=== PATIENT | male | born 1965 | race Caucasian/White ===

== ENCOUNTER 2017-02-01 12:32 | Emergency (ER) | payer BC, OTHER ==
[~2017-02-01] VITALS: Ht 170.2 cm; Wt 84.5 kg
[~2017-02-01 12:32] MED LIST: PRLSR20 PO
[2017-02-01 12:54] VITALS: TEMP 36.7; Ht 170.2 cm; Wt 84.5 kg
[2017-02-01] MEDS ORDERED: TRAM-10 PO (13:19)
[2017-02-01 13:50] VITALS: BP 135/93; PULSE 79; O2SAT 97
--- NOTE | 2017-02-01 21:22 | EMERGENCY ROOM VISIT NOTE ---
ED Visit Note First contact with patient: 13:00 CHIEF COMPLAINT: Bad toothache. HISTORY OF PRESENT ILLNESS: Mr. Oswald is a 51-year-old white male who ambulates into the complaining of right mandibular dental pain. He reports a progressive dental pain for 3 days over the right mandible involving teeth 26, 27 and 28. The pain is now steady and severe and radiates to the face. He has been using ibuprofen but has had mild relief of his discomfort but today the pain became severe. Currently he is complaining of a deep achy sensation over the involved teeth. He rates his discomfort 9/10. His is pain does radiate through right side of the mandible. His pain worsens with chewing, palpation and exposure hot and cold foods. Today he has not identified any alleviating factors related to the pain. He did take ibuprofen without relief of his discomfort. He denies any associated symptoms including fevers, chills, sweats, facial swelling, sore throat, difficulty swallowing, voice changes, drooling. REVIEW OF SYSTEMS: As noted above in History of Present Illness. 8 body systems were reviewed with this patient and found to be negative unless noted above otherwise. PMH: Patient denies.. CURRENT MEDICATION: Ultram. ALLERGIES TO MEDICATION: Patient denies. SOCIAL HISTORY: Patient is currently employed; he feels safe in his home environment; he denies tobacco and alcohol use. PHYSICAL EXAM: Vital Signs: Date Time Temp Pulse Resp B/P (MAP) Pulse Ox O2 Delivery O2 Flow Rate FiO2 02/01/17 13:50 79 20 135/93 97 02/01/17 12:54 36.7 85 18 139/100 96 Room Air General: 51 year-old white male in moderate distress due to pain, nontoxic appearing, afebrile and hemodynamically stable. Neurological: Awake, alert and oriented to person, place and time. Answering questions appropriately and following commands. Good hand eye coordination. No focal motor or sensory deficits. Skin: Warm, dry and pink. HEENT: Atraumatic and normocephalic. No facial swelling or erythema. No intraoral trauma. Airway patent. Speech normal. The involved teeth are obviously decaying with all 3 teeth black at the base and multiple caries of the teeth were noted. The local gingiva is not erythematous or edematous. I was not able to palpate any abscesses. No cervical or submandibular lymphadenopathy. ED COURSE: Patient is assessed as noted above. Patient is educated about his findings and instructed on her treatment plan; he verbalizes understanding and agreement with this plan. CLINIC IMPRESSION: Dental pain. DISPOSITION: Patient discharged home in stable condition; prior to departure she was reassessed and subjectively reported she was feeling the same. PLAN: Comfort measures were discussed including a sliding pain scale of ibuprofen, acetaminophen and [place]. He was given appropriate precautions with narcotic use and his name was checked on state database and no red flags were noted. Patient was encouraged to followup with personal dentist for definitive care and treatment. Patient was encouraged to return the ED for worsening/uncontrolled pain, facial swelling, fevers or any new/concerning symptoms.
== END 2017-02-01 13:51 | disposition home or self-care (01) ==
LOC: C.EDB 12:33 → C.EDD 13:51
DX: K08.89 Other specified disorders of teeth and supporting structures (principal)